=== PATIENT | male | born 1985 | race Caucasian/White ===

== ENCOUNTER 2024-08-22 12:36 | Emergency (ER) | payer OTHER, SELFPAY ==
[2024-08-22 12:36] VITALS: BMI 23.6
[2024-08-22 12:37] VITALS: BP 157/103
[2024-08-22 15:59] VITALS: BP 128/81
[2024-08-22 16:00] LABS: Hematocrit 49.0 % (39.0-52.0); Hemoglobin 17.1 g/dL (13.0-18.0); Mean Corp Hgb Conc. 34.9 g/dL (33.0-37.0); Mean Corpuscular Volume 88.3 fL (80.0-94.0); Nucleated Red Blood Cells % 0 % (-); Platelet Count 219 10^3/uL (130-400); Red Cell Dist. Width 12.4 % (11.5-14.5)
[2024-08-22 16:16] LABS: ALT (SGPT) 15 U/L (0-50); AST (SGOT) 16 U/L (17-59); Albumin 4.6 g/dl (3.5-5.0); Alkaline Phosphatase 69 U/L (38-126); Blood Urea Nitrogen 8 mg/dl (9-20); Calcium 9.7 mg/dl (8.4-10.2); Carbon Dioxide 30 mmol/L (22-30); Chloride 107 mmol/L (98-107); Estimated Creatinine Clearance > 125 ml/min; Glucose 98 mg/dl (70-99); Lipase 37 U/L (23-300); Potassium 4.1 mmol/L (3.5-5.1); Sodium 140 mmol/L (135-145); Total Protein 7.1 g/dl (6.3-8.2); eGFR > 60.00
--- NOTE | 2024-08-22 16:28 | ED.GENMED ---
History of Present Illness
General
Chief Complaint: Abdominal Symptoms
Time Seen by Provider: 08/22/24 15:35
History of Present Illness
History of Present Illness:
39-year-old male presents the emergency department for evaluation of left lower quadrant abdominal pain ongoing for the past 6 days. Describes a squeezing sensation that does not radiate. Also notes some abnormal bowel movements as well. Denies
any associated fevers or chills. Has started having nausea vomiting over the past 2 days. No prior abdominal surgeries.
Review of Systems
Review of Systems
Allergies reviewed?: Yes
All Other Systems: ROS reviewed and negative except as documented in HPI and ROS
Phy Exam
Physical Exam
Physical Exam:
GEN: Well appearing, NAD, WDWN
HEENT: Oral mucosa moist, no scleral icterus
Cardiac: Regular rate
Lung: No respiratory distress, no tachypnea
Abdomen: Soft, moderate left lower quadrant tenderness, no rigidity
MSK: No gross deformity or injuries
Skin: Good color, no pallor or jaundice, no rashes
Neuro: AO x3, moves all extremities freely
Psych: Calm, cooperative
Course
Orders/Labs/Results
Orders:
Orders
08/22/24 15:45
Complete Blood Count/With Diff Urgent
Comprehensive Metabolic Panel Urgent
Lipase Urgent
08/22/24 16:27
Ketorolac [Toradol] 15 mg IV NOW STA
Abnormal Lab Results
08/22/24
15:45
BUN 8 L mg/dl
(9-20)
AST 16 L U/L
(17-59)
08/22/24 15:45
08/22/24 15:45
Vital Signs
Initial and Last Documented VS:
Initial Vital Signs
Temp Pulse Resp BP Pulse Ox
98.5 F 85 20 157/103 99
08/22/24 12:37 08/22/24 12:37 08/22/24 12:37 08/22/24 12:37 08/22/24 12:37
Last Documented Vital Signs
Temp Pulse Resp BP Pulse Ox
98.5 F 74 16 118/74 99
08/22/24 12:37 08/22/24 17:28 08/22/24 17:28 08/22/24 17:28 08/22/24 17:28
MDM/Problems Addressed
MDM/Problems Addressed:
Patient eloped from the emergency department after my evaluation before CT scan was completed due to personal issues. I was able to contact the patient by phone thereafter and recommended we empirically treat him for diverticulitis given his
symptoms, he is amenable to this and thus I have prescribed Augmentin, encouraged him to return to the ED for CT scan should symptoms not improve within 48 to 72 hours
*Pulse Oximetry
SaO2: 100
Oxygen Mode of Delivery: Room air
Patient hypoxic: no
*Critical Care Note
Total Time (30-74mins, 75-104mins- exclusive of procedures): Not Applicable
ED Attending Note
-
Portions of this chart may have been created with voice recognition software.� Occasional wrong word or��sound alike� substitutions may have occurred due to the inherent limitations of voice recognition software.
Discharge Plan
Departure
Patient Disposition: Elopement
Date of Disposition: 08/22/24
Time of Disposition: 17:43
Discharge Problem:
Abdominal pain
Prescriptions:
New
amoxicillin-pot clavulanate 875-125 mg tablet
1 tab PO BID Qty: 20 0RF
dicyclomine 20 mg tablet
20 mg PO QID PRN (Reason: abdominal pain) Qty: 10 0RF
No Action
prednisone 20 mg tablet
20 mg PO BID 5 Days Qty: 10 0RF
cyclobenzaprine 10 mg tablet
10 mg PO TID PRN (Reason: muscle spasm) Qty: 20 0RF
Referrals:
Horn,Suellen E., DO [Family Provider]
Interventions
Interventions:
*Risk Screen - Suicide Last Done: 08/22/24 12:37
*General Assessment Last Done: 08/22/24 12:37
*Neglect/Abuse Screening Last Done: 08/22/24 12:37
*ED- Fall Risk Assessment Last Done: 08/22/24 15:58
*Nursing Disposition Last Done: 08/22/24 17:44
[facility] Assessment Last Done: 08/22/24 15:58
Discharge Date and Time
Discharge Date/Time: 08/22/24 17:46
Print Language: LAO
[2024-08-22] MEDS: TORADOL 15 MG IV (17:12)
[2024-08-22 17:28] VITALS: BP 118/74
== END 2024-08-22 17:46 | disposition left against medical advice (07) ==
LOC: EMR 12:36
PROVIDERS: Student in an Organized Health Care Education/Training Program; EMERGENCY PHYSICIAN Emergency Medicine; FAMILY PHYSICIAN Family Medicine
DX: R10.32 Left lower quadrant pain (principal); R11.2 Nausea with vomiting, unspecified
CPT/HCPCS: 99283; 80053; 83690; 85025